=== PATIENT | female | born 2000 | race Caucasian/White ===

== ENCOUNTER 2018-09-17 10:12 | Emergency (ER) | payer MEDICAID, OTHER ==
[~2018-09-17] VITALS: Ht 157.5 cm; Wt 105.7 kg
[2018-09-17 10:16] VITALS: BP 145/85
--- NOTE | 2018-09-17 10:26 | NUR ---
Odell ambulated to bed 12 with family. RN evaluating patient at bedside.
--- NOTE | 2018-09-17 10:55 | NUR ---
PATIENT PRESENTS TO ED WITH pt states abnormal vaginal bleeding >3 months; 3-4 sanitary napkins/day fatigue, denies dizziness or heaache at this time.--- adds lower back cramping type pain . DENIES N/V/D; SKIN IS PINK/WARM/DRY; AAOX4 WITH EVEN AND STEADY GAIT; LUNGS CLEAR BL; HR EVEN AND REGULAR; PT DENIES ANY FEVER, CP, SOB, OR COUGH AT THIS TIME; PATIENT STATES PAIN OF 8/10 AT THIS TIME; VSS; PATIENT POSITIONED FOR COMFORT; HOB ELEVATED; BEDRAILS UP X2; BED DOWN. ER MD MADE AWARE OF PT STATUS.
[2018-09-17 10:57] LABS: BASOPHILS % (AUTO) 0.3 % (0.0-2.0); EOSINOPHILS # (AUTO) 0.1 K/uL (0-0.4); EOSINOPHILS % (AUTO) 1.5 % (0.0-4.0); HEMATOCRIT 36.3 % (36-48); HEMOGLOBIN 11.6 g/dL (12.0-16.0); LYMPHOCYTES # (AUTO) 2.2 K/uL (2.5-16.5); LYMPHOCYTES % (AUTO) 29.1 % (20.5-51.1); MEAN CORPUSCULAR HEMOGLOBIN 24 pg (27-31); MEAN CORPUSCULAR HGB CONC 32 g/dL (33-37); MONOCYTES # (AUTO) 0.4 K/uL (0.8-1.0); MONOCYTES % (AUTO) 5.4 % (1.7-9.3); NEUTROPHILS # (AUTO) 4.7 K/uL (1.8-7.7); NEUTROPHILS % (AUTO) 63.7 % (42.2-75.2); PLATELET COUNT (AUTO) 281 K/uL (140-450); RED CELL DISTRIBUTION WIDTH 15.3 % (11.6-13.7); WHITE BLOOD COUNT (AUTO) 7.4 K/uL (4.5-11.0)
--- NOTE | 2018-09-17 11:05 | NUR ---
blood sample collected and walked over to lab
--- NOTE | 2018-09-17 11:14 | NUR ---
US tech at bedside for exam.
--- NOTE | 2018-09-17 13:29 | NUR ---
Patient discharged with v/s stable. Written and verbal after care instructions given and explained. Patient alert, oriented and verbalized understanding of instructions. Ambulatory with steady gait. All questions addressed prior to discharge. ID band removed. Patient advised to follow up with PMD. Rx of provera given. Patient educated on indication of medication including possible reaction and side effects. Opportunity to ask questions provided and answered.
[2018-09-17 13:30] VITALS: BP 133/87
== END 2018-09-17 13:29 | disposition home or self-care (01) ==
LOC: MED 10:12
DX: N93.9 Abnormal uterine and vaginal bleeding, unspecified (principal); R03.0 Elevated blood-pressure reading, without diagnosis of hypertension; J45.909 Unspecified asthma, uncomplicated
CPT/HCPCS: 36415; 76856; 81002; 81025; 84443; 85025; 93976; 99284; Q0092

== ENCOUNTER 2018-12-27 08:06 | Emergency (ER) | payer MEDICAID ==
[~2018-12-27] VITALS: Ht 152.4 cm; Wt 83.0 kg
[2018-12-27 08:09] VITALS: BP 127/78
[2018-12-27] MEDS ORDERED: NACL 0.9% 1,000 ML IV ONE (08:35)
[2018-12-27] MEDS ORDERED: ONDANSETRON 4 MG/2 ML VIAL IVP ONE (08:35)
--- NOTE | 2018-12-27 08:50 | NUR ---
PT C/O FEVER, COUGH, SORE THROAT, HEADACHE, N/V X4 DAYS. ALSO C/O CHEST PAIN, NON-STOP PERIOD X4 MONTH, NO MED HX. PATIENT STATES OF HAVING INTERMITTENT SHARP CHEST PAIN OF 8/10 AT THIS TIME; VSS; PATIENT POSITIONED FOR COMFORT; HOB ELEVATED; BEDRAILS UP X1; BED DOWN. ER MD MADE AWARE OF PT STATUS.
[2018-12-27 08:58] LABS: BASOPHILS # (AUTO) 0.1 K/uL (0.00-0.22); BASOPHILS % (AUTO) 0.6 % (0.0-2.0); EOSINOPHILS # (AUTO) 0.2 K/uL (0-0.4); EOSINOPHILS % (AUTO) 2.3 % (0.0-4.0); HEMATOCRIT 34.8 % (36-48); HEMOGLOBIN 11.1 g/dL (12.0-16.0); LYMPHOCYTES # (AUTO) 1.7 K/uL (2.5-16.5); LYMPHOCYTES % (AUTO) 17.6 % (20.5-51.1); MEAN CORPUSCULAR HEMOGLOBIN 22 pg (27-31); MEAN CORPUSCULAR HGB CONC 32 g/dL (33-37); MEAN CORPUSCULAR VOLUME 70.6 fL (80-94); MONOCYTES # (AUTO) 0.6 K/uL (0.8-1.0); MONOCYTES % (AUTO) 5.7 % (1.7-9.3); NEUTROPHILS # (AUTO) 7.1 K/uL (1.8-7.7); NEUTROPHILS % (AUTO) 73.8 % (42.2-75.2); PLATELET COUNT (AUTO) 268 K/uL (140-450); RED BLOOD CELL COUNT(AUTO) 4.93 MIL/uL (4.20-5.40); RED CELL DISTRIBUTION WIDTH 16.1 % (11.6-13.7); WHITE BLOOD COUNT (AUTO) 9.7 K/uL (4.5-11.0)
[2018-12-27 09:26] LABS: ALBUMIN 3.5 g/dL (3.4-5.0); ANION GAP 12.8 (8-16); CARBON DIOXIDE 26.3 mmol/L (21-32); CREATININE 0.7 mg/dL (0.6-1.3); POTASSIUM 4.1 mmol/L (3.5-5.1); TOTAL BILIRUBIN 0.3 mg/dL (0.0-1.0)
[2018-12-27 09:30] LABS: APPEARANCE,URINE CLEAR (CLEAR); BILIRUBIN,URINE NEGATIVE (NEGATIVE); BLOOD, URINE 2+ (NEGATIVE); COLOR,URINE YELLOW (YELLOW); LEUKOCYTE ESTERASE ,URINE NEGATIVE (NEGATIVE); NITRITE, URINE NEGATIVE (NEGATIVE); UGLUCOSE NEGATIVE (NEGATIVE)
--- NOTE | 2018-12-27 11:10 | NUR ---
DR. FAIRBANKS IS EVALUATING PT AT BEDSIDE.
[2018-12-27 11:55] VITALS: BP 110/75
--- NOTE | 2018-12-27 11:55 | NUR ---
Patient discharged with v/s stable. Written and verbal after care instructions given and explained. Patient alert, oriented and verbalized understanding of instructions. Ambulatory with steady gait. All questions addressed prior to discharge. ID band removed. Patient advised to follow up with PMD. Rx of Ibuprofen, Zofran, and [place] given. Patient educated on indication of medication including possible reaction and side effects. Opportunity to ask questions provided and answered.
== END 2018-12-27 11:55 | disposition home or self-care (01) ==
LOC: MED 08:06
DX: R11.2 Nausea with vomiting, unspecified (principal); N93.9 Abnormal uterine and vaginal bleeding, unspecified; J45.909 Unspecified asthma, uncomplicated
CPT/HCPCS: 36415; 71045; 76856; 80053; 81001; 81025; 83690; 85025; 87086; 87804; 93976; 96361; 96374; 99284; J2405; J7030; Q0092

== ENCOUNTER 2020-01-27 11:30 | Emergency (ER) | payer SELFPAY ==
[~2020-01-27] VITALS: Ht 154.9 cm; Wt 112.0 kg
[2020-01-27 11:32] VITALS: BP 156/79
[2020-01-27] MEDS ORDERED: KETOROLAC 60 MG/2 ML VIAL IM ONE (12:00)
[2020-01-27 12:43] VITALS: BP 156/79
== END 2020-01-27 12:44 | disposition home or self-care (01) ==
LOC: MED 11:30
DX: M54.31 Sciatica, right side (principal); R03.0 Elevated blood-pressure reading, without diagnosis of hypertension; J45.909 Unspecified asthma, uncomplicated
CPT/HCPCS: 72100; 81002; 81025; 96372; 99283; J1885

== ENCOUNTER 2023-11-14 04:41 | Emergency (ER) | payer SELFPAY ==
[~2023-11-14] VITALS: Ht 154.9 cm; Wt 113.4 kg
[2023-11-14 05:03] VITALS: BP 141/87; PULSE 94; RESP 18; TEMP 98; O2SAT 100
[2023-11-14] MEDS ORDERED: BENZ200C4 PO (05:15)
[2023-11-14 05:25] VITALS: BP 141/87; PULSE 94; RESP 18; TEMP 98; O2SAT 100
== END 2023-11-14 05:25 | disposition home or self-care (01) ==
LOC: MED 04:41
DX: R07.89 Other chest pain (principal); J45.909 Unspecified asthma, uncomplicated; Z79.899 Other long term (current) drug therapy
CPT/HCPCS: 93005; 99283